=== PATIENT | male | born 1955 | race Caucasian/White ===

== ENCOUNTER → 2017-09-27 07:04 | Outpatient (CLI) | payer OTHER, SELFPAY ==
[2017-09-27 10:42] LABS: Hemoglobin A1c 5.7 % (4.2-6.3)
[2017-09-27 10:46] LABS: Anion Gap 7 (5-15); BUN 19 mg/dL (7-18); Calcium,Total 8.8 mg/dL (8.5-10.1); Chloride 109 mmol/L (98-107); Cholesterol 205 mg/dL (200); Creatinine, Serum 0.95 mg/dL (0.70-1.30); EST Glomerular Filtration Rate 85 mL/min (>60); Est Glom Filt Rate - Afr Amer 103 mL/min (>60); Glucose 105 mg/dL (74-106); High Density Lipoprotein 41 mg/dL; Potassium 4.1 mmol/L (3.5-5.1); Sodium Level 142 mmol/L (136-145); Triglycerides 65 mg/dL; Very Low Density Lipoprotein 13 mg/dL (5-40)
== END ==
PROVIDERS: Family Provider Family Medicine; PCP Family Medicine; Visit Provider Family Medicine
DX: E78.00 Pure hypercholesterolemia, unspecified (principal); R73.01 Impaired fasting glucose
CPT/HCPCS: 36415; 80048; 80061; 83036

== ENCOUNTER → 2018-07-15 | Outpatient (CLI) | payer OTHER, SELFPAY ==
[2018-07-15 10:31] LABS: Hemoglobin A1c 5.6 % (4.2-6.3)
[2018-07-15 10:39] LABS: Anion Gap 6 (5-15); BUN 25 mg/dL (7-18); BUN/Creat Ratio 27.7 RATIO (10-20); Calcium,Total 8.4 mg/dL (8.5-10.1); Chloride 110 mmol/L (98-107); Cholesterol 191 mg/dL (200); EST Glomerular Filtration Rate 90 mL/min (>60); Est Glom Filt Rate - Afr Amer 109 mL/min (>60); Glucose 108 mg/dL (74-106); High Density Lipoprotein 42 mg/dL; PSA,Total - Annual Screen 1.99 ng/mL (0.00-4.00); Potassium 4.2 mmol/L (3.5-5.1); Sodium Level 143 mmol/L (136-145); Triglycerides 70 mg/dL; Very Low Density Lipoprotein 14 mg/dL (5-40)
== END | disposition home or self-care (01) ==
LOC: MTLAB 07:15
PROVIDERS: Family Provider Family Medicine; PCP Family Medicine; Referring Provider Family Medicine; Visit Provider Family Medicine
DX: Z00.00 Encounter for general adult medical examination without abnormal findings (principal)
CPT/HCPCS: 80048; 80061; 83036; 84153; G0103

== ENCOUNTER → 2018-07-24 | Outpatient (CLI) | payer OTHER, SELFPAY ==
--- NOTE | 2018-07-24 11:00 | US_ITS ---
STUDY: THYROID ULTRASOUND REASON FOR EXAM: Male, 62 years old. Nodules. Difficulty swallowing. TECHNIQUE: Ultrasound evaluation of the thyroid was performed with real-time and static de luna-scale imaging. COMPARISON: None. FINDINGS: RIGHT LOBE: The right lobe of the thyroid gland measures 5.7 x 2.5 x 2.1 cm. There is a homogeneous echotexture. There is a well-circumscribed isoechoic mass with hypoechoic rim in the posterior mid thyroid measuring 1.3 x 0.7 x 0.8 cm. In the upper pole there is a smaller isoechoic mass with hypoechoic rim measuring 0.7 x 0.5 x 0.4 cm. LEFT LOBE: The left lobe of the thyroid gland measures 7.8 x 4.3 x 3.9 cm. There is a heterogeneous echotexture. The entire thyroid has a appearance of a heterogenous single nodule. ISTHMUS: The isthmus measures 0.6 cm. The regional lymph nodes are normal. US/Thyroid IMPRESSION: 1. Enlarged thyroid. 2. Heterogenous left thyroid versus a single large heterogenous nodule biopsy is recommended. 3. Small isoechoic nodules in left thyroid as described above. Electronically Signed: Chuy Goldstein DO at 23:33 EDT Tel [phone], Service support ,
== END | disposition home or self-care (01) ==
PROVIDERS: Family Provider Family Medicine; PCP Family Medicine; Referring Provider Family Medicine; Visit Provider Family Medicine
DX: E04.1 Nontoxic single thyroid nodule (principal)
CPT/HCPCS: 76536

== ENCOUNTER 2019-08-04 08:57 | Emergency (ER) | payer OTHER, SELFPAY ==
[2019-08-04 08:58] VITALS: BP 174/90; PULSE 58; RESP 20; TEMP 36.8; O2SAT 98; BMI 34.4
--- NOTE | 2019-08-04 08:59 | NURSING ---
no old ekgs
--- NOTE | 2019-08-04 09:07 | EKG12_ITS ---
Test Reason : CP Blood Pressure : / mmHG Vent. Rate : 059 BPM Atrial Rate : 059 BPM P-R Int : 182 ms QRS Dur : 094 ms QT Int : 414 ms P-R-T Axes : 060 -06 043 degrees QTc Int : 409 ms Sinus bradycardia Otherwise normal ECG Confirmed by NATASHA WILLS, MARVEL ([id number]), publishing editor DEVYN ZAVALA ([id number] on 08/07/2019 10:26:25 AM Referred By: MR Confirmed By:MARVEL KAUR MD
--- NOTE | 2019-08-04 09:08 | RAD_ITS ---
STUDY: X-RAY CHEST REASON FOR EXAM: Male, 63 years old. Onset CP, tightness, pressure since this morning TECHNIQUE: PA and lateral views of the chest. COMPARISON: Comparison is made with prior examination dated August 06, 2015. FINDINGS: EKG electrodes are seen. The lungs are clear and expanded. Scattered calcified granulomas. There is no demonstrated pleural abnormality. Normal size heart. Normal mediastinum and rachid. Normal visualized pulmonary arteries. Normal visualized aortic arch and descending thoracic aorta. There are degenerative changes of the visualized thoracic spine. Normal visualized ribs, clavicles, and shoulders. There is no demonstrated abnormality of the visualized soft tissue structures of the upper abdomen. RAD/Chest PA and Lateral IMPRESSION: No acute abnormality is seen. Electronically Signed: Iain Lorenzo, at 9:41 EDT , Service support ,
--- NOTE | 2019-08-04 09:12 | ED.VIS.CHEST ---
History of Present Illness Chief Complaint: Chest Pain Informant: Patient Narrative: Patient presenting for evaluation secondary to chest pain. Patient reports that at about 130 he woke up this morning to go to the bathroom, and his grandson who is staying with him had also woken up. He reports that when he woke up he noted that he was having some chest heaviness. Patient reports that he stayed up with his grandson until the grandson went back to sleep, and then he was able to go back to sleep at about 2:30 AM. He reports that he was still having the chest pain at that time. Patient states that he woke up about 15 minutes before 7 AM, and was continuing to have chest discomfort. He states that it is a continuous type heaviness that does not have any sort of exacerbating or relieving factors. Not worse with movement, exertion, taking a deep breath, or palpation or position. Patient's denies any shortness of breath, lightheadedness, nausea or vomiting associated with this. Patient reports he is never really had any prior similar episodes. He denies any DVT or PE risk factors. Patient states that he has had a stress test but it was in the distant past. He has a history of hypertension. He quit smoking about 8 years ago. Past Medical History - Allergies and Home Meds Allergies/Adverse Reactions: Allergies No Known Allergies Allergy (Verified 08/04/19 09:07) Primary Care Physician: Richard Garber MD [Primary Care Provider] - Prior records reviewed: Yes Past Medical History: - - HTN Lives: Spouse/ Significant Other Smoking Status: Former smoker Alcohol: None Drugs: None Review of Systems General: Denies: Chills, Fever, Sweats Eyes: Denies: Visual changes - bilaterally, Diplopia ENT: Denies: Rhinorrhea, Sore throat Cardiovascular: Reports: Chest pain Respiratory: Denies: Dyspnea, Cough, Dyspnea on exertion Gastrointestinal: Denies: Abdominal pain, Nausea, Vomiting, Diarrhea, Melena, Hematochezia Genitourinary: Denies: Dysuria, Hematuria, Frequency Musculoskeletal: Denies: Back pain, Extremity Pain Skin: Denies: Rash, Wounds Neurological: Denies: Headache, Weakness, Numbness Physical Exam Vital Signs/Narrative: Vital Signs Temp Pulse Resp BP Pulse Ox 08/04/19 08:58 98.2 F 58 L 20 H 174/90 H 98 Inital Vital Signs reviewed: Yes General: Well nourished, Well developed, No Acute Distress Head: Normocephalic, Atraumatic Eyes: Perrl, EOMI ENT: Moist mucous membranes, No rhinorrhea Neck: Supple, Nontender Cardiovascular: Regular rate, Regular rhythm, No murmurs, - - No evidence of vesicular rash on the chest. 2+ radial pulses bilaterally symmetric. Respiratory: No distress, CTA bilaterally, Chest nontender Abdomen: Soft, Nontender, Nondistended, Normal bowel sounds Back: Nontender, Normal Inspection Extremities: Nontender, No edema Skin: Normal color, No rash Neurological: Alert, Oriented x3, Cranial nerves II-XII grossly intact, Normal Strength, Normal Sensation Psychological: Normal affect, Normal Mood Diagnostic/Tx/Re-eval Clinical Impression(s) from Imaging Studies Chest X-Ray 08/04/19 09:08 IMPRESSION: No acute abnormality is seen. Electronically Signed: Iain Lorenzo, at 9:41 EDT , Service support , Laboratory Data 08/04/19 08/04/19 09:02 09:02 WBC 4.1 L RBC 4.60 Hgb 14.4 Hct 43.8 MCV 95.2 H MCH 31.3 MCHC 32.9 RDW Std Deviation 44.6 H RDW Coeff of [place] 12.8 Plt Count 266 MPV 9.1 Immature Gran % (Auto) 0.500 Neut % (Auto) 44.8 L Lymph % (Auto) 36.5 [place] % (Auto) 11.6 H Eos % (Auto) 4.9 Baso % (Auto) 1.7 H Absolute Neuts (auto) 1.8 L Absolute Lymphs (auto) 1.48 Nucleated RBC % 0 Sodium 140 Potassium 3.8 Chloride 105 Carbon Dioxide 29.0 Anion Gap 6 BUN 15 Creatinine 1.00 Estim Creat Clear Calc 84.34 Est GFR (MDRD) Af Amer 97 Est GFR (MDRD) Non-Af 80 BUN/Creatinine Ratio 15.0 Glucose 126 H Calcium 8.7 Troponin I < 0.015 - EKG Initial EKG Interpretation: - - Sinus rhythm of [address] segments normal T waves. Normal AL and QTc intervals. No evidence of WPW or Brug[place] morphology. No acute ischemia or arrhythmia. - Medical Decision Making Patient presented for evaluation secondary to chest pain. Patient was given aspirin upon arrival. EKG demonstrates no ischemic signs. CBC chemistry and troponin found to be unremarkable. PA and lateral chest x-ray by my personal review as well as radiology found to be negative for acute cardiopulmonary process. Patient was given a GI cocktail as he did state that he was also having some indigestion and ate a bunch of cake yesterday and this could be the etiology for his chest pain. He is low risk per Wells criteria for pulmonary embolus I do not feel that work-up for PE is indicated. Patient's heart score is 2, and he has had persistent chest pain since 1:30 in the morning so if this was of cardiac origin he likely would have increased cardiac biomarkers. At this point I believe the patient is safe and appropriate for discharge. He will follow-up with primary care. ED Disposition - Plan for ED Patient: Disposition: Home or Assisted Living Diagnosis: Chest pain Instructions: ED Chest Pain NonCardiac Referrals: Richrad Garber MD [Primary Care Provider] - 5-7 Days
[2019-08-04] MEDS: Aspirin 81 MG TAB.CHEW 243 MG PO (09:13)
[2019-08-04 09:15] LABS: Absolute Lymphocyte Count 1.48 X10^3/uL (0.83-4.51); Absolute Neutrophil Count 1.8 X10^3/uL (2.0-7.7); Basophil# 0.07 X10^3/uL; Basophil% 1.7 % (0-1); Eosinophils% 4.9 % (0-5); Hematocrit 43.8 % (40-54); Hemoglobin 14.4 g/dL (13.0-16.5); Lymphocyte # 1.48 X10^3/ul (4.0); Lymphocyte % 36.5 % (19-41); Mean Corp Hgb Conc 32.9 g/dL (32-36); Mean Corpuscular Hgb 31.3 pg (27.0-32.0); Mean Corpuscular Volume 95.2 fL (80-94); Mean Platelet Vol. 9.1 fl (6.2-12.0); Monocyte# 0.47 X10^3/uL; Monocyte% 11.6 % (0-10); NRBC Flagged by Analyzer 0 % (0-5); Neutrophil # 1.82 X10^3/uL (2.7-7.7); Neutrophil % 44.8 % (47-70); Platelet Count 266 K/mm3 (150-450); RBC Distribution Width CV 12.8 % (11.6-14.6); RBC Distribution Width SD 44.6 fl (35.1-43.9); White Blood Count 4.1 K/mm3 (4.4-11.0)
[2019-08-04 09:33] LABS: Anion Gap 6 (5-15); BUN 15 mg/dL (7-18); Calcium,Total 8.7 mg/dL (8.5-10.1); Chloride 105 mmol/L (98-107); EST Glomerular Filtration Rate 80 mL/min (>60); Est Glom Filt Rate - Afr Amer 97 mL/min (>60); Estimated Creatinine Clearance 84.34 ml/min; Glucose 126 mg/dL (74-106); Potassium 3.8 mmol/L (3.5-5.1); Sodium Level 140 mmol/L (136-145)
[2019-08-04 09:58] VITALS: BP 141/78; PULSE 50; RESP 16; O2SAT 98
[2019-08-04] MEDS: Mag Hydrox/Al Hydrox/Simeth 30 ML UDC PO (09:59)
== END 2019-08-04 10:33 | disposition home or self-care (01) ==
LOC: ED 10:02
PROVIDERS: Emergency Provider Emergency Medicine; PCP Family Medicine
DX: R07.89 Other chest pain (principal); I10 Essential (primary) hypertension; Z79.899 Other long term (current) drug therapy; Z87.891 Personal history of nicotine dependence
CPT/HCPCS: 71046; 80048; 84484; 85025; 93005; 99285; A4216

== ENCOUNTER → 2019-08-22 13:31 | Outpatient (CLI) | payer OTHER, SELFPAY ==
[2019-08-04 08:58] VITALS: BMI 34.4
--- NOTE | 2019-08-22 13:37 | STE_ITS ---
Version 2 Reason For Study: Chest Pain; HTN Stress Results Protocol: Griffin Protocol Maximum Predicted HR: 155 bpm Target HR: 132 bpm % Maximum Predicted HR: 88 % DurationHeart Rate Stage (mm:ss) (bpm) BP Comment Baseline 51 158/84No Chest Pain Griffin Protocol Stage I 3:00 80 164/86No Chest Pain Griffin Protocol Stage II 3:00 96 176/80No Chest Pain Griffin Protocol Stage III 3:00 118 184/82No Chest Pain Griffin Protocol Stage IV 2:00 136 190/80No Chest Pain Recovery 80 146/82No Chest Pain Stress Duration: 11:00 mm:ss Maximum Stress HR: 136 bpm METS: 13 Baseline Echocardiogram Findings The estimated ejection fraction is 60 %. Post exercise LVEF is 70%. Stress Echo Wall motion Data Resting WM Intermediate WM Stress WM Resting Wall Motion Wall Motion Stress No regional wall motion No regional wall motion abnormalities noted. abnormalities noted. EKG Data The baseline ECG displays normal sinus rhythm. No significant ischemic changes. Pt. had PVCs with exercise and in the recovery period. Symptoms with Stress The patient experinced no chest pain . Interpretation Summary The estimated ejection fraction is 60 %. Stress echo is negative for exercise induced CP or EKG or echocardiographic changes of ischemia. Functional capapcity is excellent for age Ordering Physician: Richard Tesfaye Referring Physician: Fanny Mccabe M.D. Performed By: Alayna Couch, RDCS, RVT
== END ==
PROVIDERS: PCP Family Medicine; Referring Provider Family Medicine; Visit Provider Family Medicine
DX: I10 Essential (primary) hypertension (principal)
CPT/HCPCS: 93017; 93350

== ENCOUNTER → 2020-01-20 07:17 | Outpatient (CLI) | payer OTHER, SELFPAY ==
[2020-01-20 10:12] LABS: ALB/GLOB Ratio 1.2 RATIO (0.9-2.4); AST(SGOT) 13 U/L (15-37); Alanine Aminotransfer ALT/SGPT 33 U/L (16-61); Albumin, Serum 3.9 g/dL (3.2-5.0); Alkaline Phosphatase 43 U/L (45-117); Anion Gap 3 (5-15); BUN 14 mg/dL (7-18); Calcium,Total 8.6 mg/dL (8.5-10.1); Chloride 107 mmol/L (98-107); Cholesterol 234 mg/dL (200); EST Glomerular Filtration Rate 80 mL/min (>60); Est Glom Filt Rate - Afr Amer 96 mL/min (>60); Globulin 3.3 g/dL (2.2-4.2); Glucose 112 mg/dL (74-106); High Density Lipoprotein 37 mg/dL; PSA,Total - Annual Screen 1.96 ng/mL (0.00-4.00); Potassium 4.2 mmol/L (3.5-5.1); Protein, Total 7.2 g/dL (6.4-8.2); Sodium Level 140 mmol/L (136-145); Triglycerides 96 mg/dL; Very Low Density Lipoprotein 19 mg/dL (5-40)
== END ==
PROVIDERS: PCP Family Medicine; Referring Provider Family Medicine; Visit Provider Family Medicine
DX: I10 Essential (primary) hypertension (principal); Z12.5 Encounter for screening for malignant neoplasm of prostate
CPT/HCPCS: 36415; 80053; 80061; 84153; G0103

== ENCOUNTER → 2020-05-04 08:14 | Outpatient (CLI) | payer OTHER, SELFPAY ==
[2020-05-04 10:45] LABS: ALB/GLOB Ratio 0.9 RATIO (0.9-2.4); AST(SGOT) 19 U/L (15-37); Alanine Aminotransfer ALT/SGPT 54 U/L (16-61); Albumin, Serum 3.1 g/dL (3.2-5.0); Alkaline Phosphatase 49 U/L (45-117); Anion Gap 4 (5-15); BUN 17 mg/dL (7-18); BUN/Creat Ratio 21.3 RATIO (10-20); Calcium,Total 8.5 mg/dL (8.5-10.1); Chloride 107 mmol/L (98-107); Cholesterol 167 mg/dL (200); EST Glomerular Filtration Rate 103 mL/min (>60); Est Glom Filt Rate - Afr Amer 125 mL/min (>60); Globulin 3.3 g/dL (2.2-4.2); Glucose 100 mg/dL (74-106); High Density Lipoprotein 30 mg/dL; Potassium 3.8 mmol/L (3.5-5.1); Protein, Total 6.4 g/dL (6.4-8.2); Sodium Level 141 mmol/L (136-145); Thyroid Stim Hormone (TSH) 1.75 uIU/mL (0.358-3.74); Triglycerides 103 mg/dL; Very Low Density Lipoprotein 21 mg/dL (5-40)
== END ==
PROVIDERS: PCP Family Medicine; Referring Provider Family Medicine; Visit Provider Family Medicine
DX: E04.1 Nontoxic single thyroid nodule (principal); E78.00 Pure hypercholesterolemia, unspecified
CPT/HCPCS: 36415; 80053; 80061; 84443